=== PATIENT | male | born 1940 | race Asian ===

== ENCOUNTER 2025-08-26 10:22 | Day surgery (SDC) | payer MEDICARE, OTHER, SELFPAY ==
[2025-08-26] VITALS (17 sets, daily range): BP systolic 88–131; BP diastolic 58–75; BMI 25.1
[2025-08-26 12:50] LABS: ACT-LR - POC 261 Seconds (116-155)
[2025-08-26 13:18] LABS: ACT-LR - POC 282 Seconds (116-155)
--- NOTE | 2025-08-26 13:49 | ITS.CL.ABL ---
Manager Delivery - Ablation
Ablation
Procedure Report:
ELECTROPHYSIOLOGY ABLATION STUDY
DATE:: August 26, 2025�����������������������������REFERRING: Dr. Andrew Whiting
INDICATION: Recently persistent supraventricular tachycardia in the form of atypical atrial flutter as well as atrial fibrillation.
HISTORY: See H and P.� As above
ANTIARRHYTHMIC DRUG: Diltiazem
PRE-PROCEDURE PARRIS: No intracardiac thrombus on intracardiac ultrasound
PRESENTING RHYTHM: Counterclockwise mitral annular flutter cycle length to 40 ms diagnosed by activation and entrainment
'TIME-OUT':��called and confirmed.
SEDATION/ANESTHESIA:��provided via the anesthesia department using general anesthesia (LMA).
INTRAVENOUS/ARTERIAL ACCESS:
Right femoral venous -8Fr
Left femoral venous - 8 Fr, 6 Fr
[id number]-dw-[id number] suture bilaterally
Ultrasound guidance for bilateral femoral vein access was utilized by me to obtain access with demonstration of normal anatomy although the artery and vein were immediately juxtaposed with the vein somewhat shielded by the femoral artery bilaterally
CHADS-VASC Score:
HAS-Bled Score
PROCEDURE:
1.��A decapolar CS catheter was placed within the CS for mapping and pacing.��This was also used as the reference catheter for the 3-D map. Once intracardiac catheters were established and intracardiac ultrasound was placed in the right atrium the
left atrium was markedly dilated with normal wall thickness to mild LVH. Interesting and the patient is noted to have low voltage on surface QRS. Presenting arrhythmia with cycle length to 40 ms with proximal to distal activation of the coronary
sinus. Interestingly a lateral right atrial entrainment demonstrated PPI greater than 100 ms greater than tachycardia cycle length. The patient's entrainment from the coronary sinus proximal and distal demonstrated PPI equal to tachycardia cycle
length suggesting counterclockwise mitral annular flutter. We then performed transseptal as below which by activation and entrainment also confirmed counterclockwise mitral annular flutter. 100 mcg of nitroglycerin were given to avoid coronary
spasm and radiofrequency energy was delivered at the mitral annulus at approximately 3:00 back to the mid mitral isthmus with slowing from of tachycardia from 240 ms to 270 ms. PFA lesions were then given from the mid isthmus back towards the
ligament of [place] the left inferior pulmonary vein terminating tachycardia. Additional lesions were given across the isthmus with persistent bidirectional block at 164 ms bilaterally with activation mapping determined by pacing. We then
performed pulmonary and isolation and posterior wall box lesion set isolating the posterior wall as completed below. The patient was then noninducible for tachyarrhythmia post ablation.
2. The intracardiac ultrasound catheter was positioned in the RA to identify the FO for targeting of transseptal puncture, assist��in identification of the pulmonary vein ostia, monitoring pre and post ablation pulmonary vein flow velocities,
monitoring for 'bubble' formation during RF application as a sign of thermal injury,��and to monitor for pericardial effusion during mapping and ablation procedure.���Left atrial size, LV ejection fraction, and pulmonary vein flows were monitored
pre and post ablation procedure. The other valves were inspected and found to be free of significant regurgitation or stenosis.
3.��Half of the calculated heparin bolus was administered prior to the first transeptal puncture.��Transseptal puncture was performed to diagnose RA and LA pressure so that safety of LA mapping and ablation could be further assessed, and to access
the left atrium and pulmonary veins for mapping and ablation.��This entailed advancing an 10 Tristanian steerable sheath with dilator into the superior vena cava and withdrawing both (monitoring intracardiac ultrasound, fluoroscopy and tip pressure)
with the tip oriented toward the atrial septum.��The fossa ovalis was engaged (indicated by sudden displacement of the sheath tip as well as tenting of the fossa seen on intracardiac ultrasound).��Left atrial access required a pass with the
B[place]rough needle extended.��Left atrial catheter position was confirmed by pressure monitoring (RA mean pressure 4 mm Hg and LA mean presure 18 mm Hg follow-up of 18), LA saturation (99%),��as well as fluoroscopy.��The sheath was advanced over
the dilator and positioned in the left atrium.��The remainder of the calculated heparin bolus was administered and heparin was
infused to maintain ACT at 300 -350 seconds throughout the case.
4.��RA pacing was performed via the proximal decapolar poles and LA pacing was performed via the distal decapolr poles.
5. A quadrapolar catheter was first positioned at the His position for His Bundle recording which was tagged via the 3-D Navex sytem, and then passed to the RVA for RV pacing and recording.
6. The lattice catheter was placed in each of the LIPV, LSPV, RSPV and the RIPV.��
7.��Next, a 3-D map was created using Navex.���A 3-D reconstructed CT image was compared to the 3-D Navex map to assist in anatomic interpretation, mapping and ablation.��The CT image and the NavX image were fused.
8. After targeting the patient's clinical arrhythmia which was counterclockwise mitral annular flutter we then proceeded to [place] ablation around the left and right pulmonary veins isolating both sets of veins with entrance and exit block.
We then performed a posterior wall box lesion set with a roofline posterior wall lines outside the posterior aspects of the pulmonary veins and floor line connecting the box. Electrical isolation of the posterior wall was fashioned and entrance and
exit block was confirmed in all 4 pulmonary veins the posterior wall and persistent bidirectional block across the lateral mitral isthmus line from mitral annulus at 3:00 back to the left inferior pulmonary vein.
9. Post cardioversion of mitral flutter with ablation the patient was noted to be mainly in junctional rhythm which was hemodynamically tolerated with occasional sinus beats. EP study with burst pacing down to 260 ms which was left atrial
refractoriness as well as atrial extrastimuli down to left and right atrial refractoriness at 600�220 did not demonstrate any inducibility for supraventricular tach arrhythmia.
TOTAL FLOURO TIME: 12 minutes 123 mGy
TOTAL RF DURATION: 1 minutes
REVERSAL OF HEPARIN: 35 mg of protamine, slow IV administration
COMPLICATIONS:
None
Intracardiac US shows no pericardial effusion post ablation.
SUMMARY:��
Complex left atrial mapping and ablation.
Counterclockwise mitral annular flutter ablation, PVI, left atrial posterior wall isolation
RECOMMENDATIONS:
1. Ambulate in 4 hours
2. Resume anticoagulation and will recommend increasing Eliquis to 5 mg twice daily
3.��Continue low-dose diltiazem
4.��Could consider workup for infiltrative heart disease given the patient's low voltage on ECG and normal to mild left ventricular hypertrophy
Copy to: Dr. Andrew Whiting at cardiology
--- NOTE | 2025-08-26 14:22 | PTCARENOTE ---
BP low 89/63,pt aaox3, karthik Distribution Supervisor made aware, nss 500 cc bag hanging, will cont to assess
--- NOTE | 2025-08-26 16:48 | W.PN.UPDATE ---
Update Note
Progress Note Update
Pt seen post PFA/flutter ablation. Bilat groin sites without ht/bleeding, non tender. Post EKG initially JR w/PACs, but has since resolved to NSR w/PACs, rates 70s. Will hold diltiazem for 2 nights and resume on 08/28. SBP also mid 80s-90s, was
given 1L fluid post procedure with improvement, SBP now 110. Resume eliquis tonight at usual time. He was taking 2.5mg BID however, per criteria (age, kg, renal function) he was increased to 5mg BID. Followup with Dr. Whiting as scheduled. Home today
if groin sites/tele/BP remain stable.
[2025-08-26] MEDS: ELIQUIS 5 MG PO (20:30)
--- NOTE | 2025-08-26 23:34 | PTCARENOTE ---
Received patient at change of shift from the can labeler. SR on the monitor, HR in the 60s. Bilateral groins CDI, soft. Patient voided 120, bladder scanned for 309. No complaints from pt at this time, call enrique within reach.
[2025-08-27 03:10] VITALS: BP 105/73
[2025-08-27 03:43] LABS: Hematocrit 31.5 % (39.0-52.0); Hemoglobin 9.9 g/dL (13.0-18.0); Mean Corp Hgb Conc. 31.4 g/dL (33.0-37.0); Mean Corpuscular Volume 83.1 fL (80.0-94.0); Platelet Count 191 10^3/uL (130-400); Red Cell Dist. Width 15.6 % (11.5-14.5)
[2025-08-27 04:11] LABS: Blood Urea Nitrogen 21 mg/dl (9-20); Calcium 8.9 mg/dl (8.4-10.2); Carbon Dioxide 21 mmol/L (22-30); Chloride 107 mmol/L (98-107); Estimated Creatinine Clearance 49 ml/min; Glucose 148 mg/dl (70-99); Magnesium 1.9 mg/dl (1.6-2.3); Potassium 5.0 mmol/L (3.5-5.1); Sodium 136 mmol/L (135-145); eGFR > 60.00
[2025-08-27 07:11] VITALS: BP 114/72
--- NOTE | 2025-08-27 08:00 | PTCARENOTE ---
Assumed care of pt from prev nsg shift; Pt AAOx3 w/no c/o CP or SOB. Pt's VSS this AM. Pt w/bilat groin sites w/dressings intact. L groin dressing w/sm area of old drainage. No signs or symptoms of bleeding or hematoma. Pt anxious for D/C this AM.
[2025-08-27] MEDS: ELIQUIS 5 MG PO (08:24)
[2025-08-27] MEDS: LIPITOR 20 MG PO (08:24)
--- NOTE | 2025-08-27 08:40 | PTCARENOTE ---
Pt's IV line & contact lens technician D/C'd; Discussed D/C instructions w/pt & spouse. Pt walked out on his own accord w/spouse driving him home.
--- NOTE | 2025-08-27 09:24 | W.PN.CARDCBS ---
Today's Communication / Plan
-
Home today
Eliquis 5 mg twice daily indefinitely
Resume diltiazem today of heart rate greater than 60 at home�she does follow with an [employer] watch
Communicated procedure findings to his son who is a cardiothoracic surgeon
I took time to answer all questions the patient and at the bedside
Impression / Plan
-
Impression:
Clinical mitral flutter 230ms
Status post PVI, left atrial posterior wall isolation and mitral flutter ablation August 26, 2025
Hyperlipidemia
Junctional bradycardia
Sinus bradycardia
ILR implant 2020
Low voltage QRS
Normal LV wall thickness
Recommendations:
Increased Eliquis to 5 mg twice daily
Resume diltiazem for heart rate greater than 60 on 08/[address] Whiting to consider workup for infiltrative heart disease such as amyloidosis given the low voltage QRS and normal LV wall thickness of 1 cm to 1.1 cm
Will plan ILR explant and new implant in spring 2025 when battery reaches depletion
I took time to answer all questions
Patient ambulating without difficulty or pain. Bilateral groins are hemostatic. He was able to urinate last evening and does have some bladder retention
Stable for discharge
Progress Note - Tree Trimmer Helper
Subjective
Date of Service: August 27, 2025
Feels well
Objective
Labs:
08/27/25 03:19
08/27/25 03:19
Labs
Hgb 9.9 g/dL (13.0-18.0) L 08/27/25 03:19
Hct 31.5 % (39.0-52.0) L 08/27/25 03:19
Plt Count 191 10^3/uL (130-400) 08/27/25 03:19
Sodium 136 mmol/L (135-145) 08/27/25 03:19
Potassium 5.0 mmol/L (3.5-5.1) 08/27/25 03:19
BUN 21 mg/dl (9-20) H 08/27/25 03:19
Creatinine 1.0 mg/dL (0.7-1.3) 08/27/25 03:19
Glucose 148 mg/dl (70-99) H 08/27/25 03:19
Vital Signs and I&O:
Vital Signs
Temp Pulse Resp BP Pulse Ox
97.8 F 58 20 114/72 98
08/27/25 07:11 08/27/25 08:00 08/27/25 07:11 08/27/25 07:11 08/27/25 08:30
Vital Signs
Temp Pulse Resp BP Pulse Ox
97.8 F 58 20 114/72 98
08/27/25 07:11 08/27/25 08:00 08/27/25 07:11 08/27/25 07:11 08/27/25 08:30
Intake & Output
08/25/25 08/26/25 08/27/25 08/28/25
06:59 06:59 06:59 06:59
Intake Total 240 / 240
Output Total 600 / 600 200 / 200
Balance -600 / -600 40 / 40
Physical Exam
Physical Exam
����Physical Exam
���������������������General:��no apparent distress, not acutely ill
���������������������������Neck:��supple. no meningeal signs. normal psoterior pharynx
������������������������
���������������������������Heart:��s1/s2 regular rate and rhythm, no murmur. equal radial pulses.
��������������������������Lungs: ��no acute respiratory distress. clear bilaterally
����������������������Abdomen:�normal bowel sounds. not tender. no CVAT
��������������������������Neuro:��alert and oriented. no focal neurological deficits
������������������������������Skin: ��no rash
�����������������������Psychiatric:�well kept. interactive and cooperative
�����������������������Extremities:��no edema. no calf tenderness. negative homans. good distal pulses
��
�
--- NOTE | 2025-08-27 10:16 | W.DS.TRANS ---
DC Summary - Retail Greeter
-
Discharge Instructions:
Discharge Diagnosis/Procedures AFib, s/p ablation
Diet Low Cholesterol
Driving Restrictions No driving for 24 hours
Instructions:
Stand-Alone Forms: DC Instructions- Cath/EP Lab
Changes to Home Medications: No
Discharge Medications:
DC Medications w/original date entered in [employer]
apixaban 5 mg tablet (Eliquis) 5 mg PO BID #0 tabs 08/26/25
aspirin 81 mg tablet 81 mg PO DAILY 08/26/25
atorvastatin 20 mg tablet 20 mg PO DAILY 08/26/25
diltiazem HCl 120 mg tablet 120 mg PO QPM 08/26/25
losartan 25 mg tablet 25 mg PO DAILY 08/26/25
Home Medication Changes
Pending Results: No
== END 2025-08-27 08:59 | disposition home or self-care (01) ==
LOC: CATH 10:22
PROVIDERS: Nurse Practitioner; ATTENDING PHYSICIAN Internal Medicine Cardiovascular Disease; FAMILY PHYSICIAN Family Medicine; OTHER PHYSICIAN Internal Medicine Cardiovascular Disease
DX: I48.91 Unspecified atrial fibrillation (principal); E78.5 Hyperlipidemia, unspecified; I47.10 Supraventricular tachycardia, unspecified; I48.4 Atypical atrial flutter; I49.1 Atrial premature depolarization; Z95.0 Presence of cardiac pacemaker; Z79.82 Long term (current) use of aspirin; Z79.01 Long term (current) use of anticoagulants; Z79.899 Other long term (current) drug therapy
CPT/HCPCS: C1733; C1894; C1766 ×2; C1892; C1759; 80048; 83735; 85027; 85347; 93005; 93655; 93656; 93657; C1730